=== PATIENT | female | born 1955 | race Caucasian/White ===

== ENCOUNTER 2019-10-07 04:22 | Emergency (ER) | payer BC ==
--- NOTE | 2019-10-07 07:42 | RAD ---
RADIOGRAPH CHEST ONE VIEW RADIOGRAPH ABDOMEN 2 VIEWS: DATE: 10/07/2019 HISTORY: 63-year-old female with constipation: Lack of bowel movement for more than one week FINDINGS: There are no airspace densities or pulmonary edema. The lateral costophrenic angles are sharp. There is no cardiomegaly. There is no evidence of pneumothorax or pneumoperitoneum. There is no evidence of dilated small bowel loops, differential air-fluid levels, or organomegaly. Mo derately large volume of colonic stool. IMPRESSION: 1) No acute cardiopulmonary findings. 2) no evidence of bowel obstruction. 3) constipation
== END 2019-10-07 05:24 | disposition home or self-care (01) ==
LOC: ERS 04:22
DX: K59.00 Constipation, unspecified (principal); E11.9 Type 2 diabetes mellitus without complications; F17.210 Nicotine dependence, cigarettes, uncomplicated
CPT/HCPCS: 74022

== ENCOUNTER 2019-11-09 20:38 | Inpatient (IN) | payer BC, OTHER ==
[2019-11-09] MEDS ORDERED: Ondansetron PF 4 MG/2 ML Vial ONE (21:03)
[2019-11-09 21:14] LABS: #Basophils 0.1 thou/uL (0.0-0.2); #Lymphocytes 1.2 thou/uL (1.20-3.40); #Monocytes 0.5 thou/uL (0.11-0.59); #Neutrophils 5.9 thou/uL (1.40-6.50); %Basophils 0.7 % (0.0-1.0); %Eosinophils 0.3 % (0.0-10.0); %Lymphocytes 15.8 % (21.0-51.0); %Neutrophils 77.2 % (42.0-75.0); Hemoglobin 14.9 g/dL (12.0-16.0); Mean Corpuscular HGB CONC 33.4 g/dL (32.0-36.0); Mean Corpuscular Hemoglobin 34.3 pg (27.0-31.0); Platelet Count 306 thou/uL (130-400); RBC Distribution Width 12.5 % (11.5-14.5); Red Blood Cell (RBC) Count 4.36 mill/uL (4.20-5.40); White Blood Cell (WBC) Count 7.7 thou/uL (4.8-10.8)
[2019-11-09 21:26] LABS: Base Excess-Venous 0.8 mmol/L (-2.0 to 3.0); Bicarbonate (HCO3v) 27.9 mmol/L (22.0-28.0); CO2 Tension (PvCO2) 53.7 mmHg (40.0-50.0); Calcium, Ionized 1.05 mmol/L (See Comments:); Chloride 96 mmol/L (98-107); Sodium 134 mmol/L (138-145); T. Carbon Dioxide 29.6 mmol/L (22.0-28.0); vO2 Saturation-calc 19.1 % (60.0-85.0)
[2019-11-09 21:41] LABS: ALT (SGPT) 33 U/L (8-55); AST (SGOT) 45 U/L (5-34); Albumin 4.6 g/dL (3.4-4.8); Alkaline Phosphatase 42 U/L (40-110); Anion Gap 12 mmol/L (10-20); BUN (Urea Nitrogen) 9 mg/dL (9.8-20.1); Bilirubin, Total 0.4 mg/dL (0.2-1.2); Calc. Creatinine Clearance 0 mL/min (70-130); Calcium 8.6 mg/dL (7.8-10.44); Carbon Dioxide 28 mmol/L (23-31); Chloride 96 mmol/L (98-107); Estimated GFR-MDRD 80; Globulin 2.8 g/dL (2.4-3.5); Glucose 143 mg/dL (80-115); Lipase 32 U/L (8-78); Potassium 4.5 mmol/L (3.5-5.1); Protein, Total 7.4 g/dL (6.0-8.3); Sodium 131 mmol/L (136-145)
[2019-11-09 22:18] LABS: Bacteria/HPF None Seen HPF (None Seen); Bilirubin Negative (Negative); Blood, Urine Trace (Negative); Clarity Clear (Clear); Glucose, Urine (Dipstick) 50 mg/dL (Negative); Ketone, Urine Negative (Negative); Leukocyte Negative Leu/uL (Negative); Nitrite Negative (Negative); Protein, Urine (Dipstick) Negative (Neg-Trace); RBC/HPF 0-3 HPF (0-3); Specific Gravity, Urine 1.005 (1.002-1.036); Squamous Epithelial 0-3 HPF (0-3); Urobilinogen Normal mg/dL (Less than 2); WBC/HPF 0-3 HPF (0-3)
[2019-11-09] MEDS ORDERED: Dexamethasone 10 MG/ML VIAL ONE (23:02)
--- NOTE | 2019-11-09 23:12 | RAD ---
EXAM: CHEST ONE VIEW HISTORY: Patient found unresponsive on bedroom floor. Altered mental status. COMPARISON: 11/12/2013. FINDINGS: The cardiac silhouette and pulmonary vasculature is within normal limits. The lungs are clear. Vascul ar calcifications are seen in the thoracic aorta. No other interval change IMPRESSION: No acute cardiopulmonary process.
[2019-11-09] MEDS ORDERED: Levothyroxine 100 MCG SDV IVP SCH (23:30)
[2019-11-10 00:47] LABS: Lactic Acid 1.2 mmol/L (0.5-2.2)
[2019-11-10] MEDS ORDERED: Ondansetron PF 4 MG/2 ML Vial IVP PRN (02:44)
[2019-11-10] MEDS ORDERED: Dextrose 50% Abboject 50 ML SYRINGE SLOW IVP PRN (02:44)
[2019-11-10] MEDS ORDERED: Ondansetron ODT 4 MG TAB PO PRN (02:44)
[2019-11-10] MEDS ORDERED: Dextrose 5% in Water 1,000 ML IV PRN (02:44)
[2019-11-10] MEDS ORDERED: Acetaminophen 500 MG TAB PO PRN (02:44)
[2019-11-10] MEDS ORDERED: Sodium Chloride 0.9% 1,000 ML IV SCH (02:45)
[2019-11-10 03:00] VITALS: BMI 21.8
--- NOTE | 2019-11-10 03:44 | HP ---
PRIMARY CARE PROVIDER: Luis Sheikh at [facility]. CHIEF COMPLAINT: Hypoglycemia. HISTORY OF PRESENT ILLNESS: This is a 63-year-old female, who presents to [facility] Emergency Department in transport by EMS personnel after the patient was found down at her home in her closet. The patient states that she became increasingly weak and was unable to get to the kitchen to check her blood glucose, which she says has been low in the past. The patient states she was too weak to crawl to the kitchen, at which point, her daughter apparently found her in her home after having to break the door down to get to her. The patient was initially discovered hypothermic as well as hypoglycemic with glucose in the 10 range. The patient did receive glucose administration and underwent a general evaluation in the emergency room. The patient was noted with TSH of 96 with a free T4 level of 0.63. The patient received IV levothyroxine in addition to IV fluids, Zofran, and dexamethasone. The patient states she feels improved clinically with less fatigue. The patient states she is followed by an rubber stamp die inspector for her diabetes and hypothyroidism and denies any specific change to her chronic regimen. The patient is unclear on taking the thyroid medication on a regular basis and states she may be out of the medicine. PAST MEDICAL HISTORY: 1. Hypothyroidism, poorly controlled. 2. Diabetes mellitus type 2. 3. Dyslipidemia. PAST SURGICAL HISTORY: Reviewed and negative. CURRENT MEDICATIONS: 1. Levothyroxine 175 mcg p.o. daily. 2. Metformin 1000 mg p.o. b.i.d. 3. Simvastatin 20 mg p.o. at bedtime. The rest of the medication list will need to be confirmed with family members. ALLERGIES: NO KNOWN DRUG ALLERGIES. FAMILY HISTORY: Positive for hypertension. SOCIAL HISTORY: Resides in [place], [place]. Smokes up to a pack of cigarettes daily x40 years. No alcohol or illicit drug use. Works as a assistant elementary teacher. REVIEW OF SYSTEMS: CONSTITUTIONAL: Negative for weight loss or gain, ability to conduct usual activities. SKIN: Negative for rash, itching. EYES: Negative for double vision, pain. ENT/MOUTH: Negative for nose bleeding, neck stiffness, pain, tenderness. CARDIOVASCULAR: Negative for palpitations, dyspnea on exertion, orthopnea. RESPIRATORY: Negative for shortness of breath, wheezing, cough, hemoptysis, fever or night sweats. GASTROINTESTINAL: Negative for poor appetite, abdominal pain, heartburn, nausea, vomiting, constipation, or diarrhea. GENITOURINARY: Negative for urgency, frequency, dysuria, nocturia. MUSCULOSKELETAL: Negative for pain, swelling. NEUROLOGIC/PSYCHIATRIC: Negative for anxiety, depression. ALLERGY/IMMUNOLOGIC: Negative for skin rash, bleeding tendency. Otherwise negative except as stated per HPI. PHYSICAL EXAMINATION: VITAL SIGNS: On admission, blood pressure 115/65, pulse 85, respiratory rate 16, temperature 98 degrees Fahrenheit, O2 saturation 98% on room air. GENERAL APPEARANCE: This is a 63-year-old female, alert and oriented x3, pleasant, smiling, in no acute distress. HEENT: Pupils are equal, round, reactive to light and accommodation. Extraocular muscles are intact. No scleral icterus. No conjunctival injection. Nares patent. OP is clear. Oral mucosa dry. NECK: Supple. No cervical adenopathy. No thyromegaly. No carotid bruits. No JVD appreciated. Cervical spine with full active and passive range of motion. No meningeal signs noted. CHEST: Lungs are clear to auscultation bilaterally. CARDIOVASCULAR EXAM: S1, S2 without noted murmur, rub, or gallop. ABDOMEN: Rounded, soft, nontender, and nondistended. Bowel sounds are positive in all 4 quadrants. There is no hepatosplenomegaly. No abdominal bruits. No rebound or guarding appreciated. EXTREMITIES: Warm and dry with fair turgor. No clubbing, cyanosis, or asymmetric edema appreciated. Pulses palpable distally at the dorsalis pedis, posterior tibial, and popliteal arteries bilaterally. Capillary refill less than 2 seconds. NEUROLOGIC: Cranial nerves 2 through 12 are grossly intact. No focal or lateralizing signs appreciated. PERTINENT LABORATORY AND X-RAY FINDINGS: Sodium 134, potassium 4.0, chloride 96, CO2 of 28, BUN 9, creatinine 0.73, estimated GFR 80, glucose 143. Lactic acid level ranged between 1.2 to 2.5. AST 45, ALT of 33, alkaline phosphatase 42. Troponin I negative x1. Lipase 32. TSH is 96.3, free T4 level 0.63. CBC showed a white blood cell count of 7.7, hemoglobin 15, hematocrit 45, MCV 102, platelet count 306 with 77% neutrophils. Venous blood gas dated 11/09/2019, showed pH of 7.32, pCO2 of 54, PO2 of 16. Urinalysis showed trace blood. SARS-Cov-2 rapid PCR not detected, 11/09/2019. Portable chest x-ray dated 11/09/2019 showed no acute cardiopulmonary process. EKG dated 11/09/2019 by my interpretation shows sinus mechanism with heart rates in the 80s. Normal R-wave progression noted in the precordial leads. Normal axis. No acute ST-T wave changes appreciated. ASSESSMENT AND PLAN: 1. Hypoglycemia. We will continue serial glucose monitoring. Hold home oral hypoglycemics. Check A1c level in the a.m. Continue intravenous fluids. Serial Accu-Cheks before meals and at bedtime. 2. Hypothyroidism. Poorly controlled on current regimen. Restart levothyroxine 175 mcg p.o. daily. 3. Hyponatremia. Suspect secondary to poor oral intake. Serial sodium monitoring. Continue intravenous normal saline at 75 mL/h. 4. Diabetes mellitus type 2. Insulin requiring. Continue insulin sliding scale for reflexive coverage. Serial Accu-Cheks. ADA diet when tolerating p.o. intake. 5. Question of syncope. The patient unclear if she had a syncopal event. We will continue serial monitoring. Fall risk precautions. Likely due to hypoglycemic event. 6. Tobacco abuse. Offer smoking cessation resources prior to discharge. 7. Prophylaxis. SCDs while in bed. Pepcid 20 mg p.o. b.i.d. 8. Code status is full. Surrogate medical decision maker is the patient's daughter. Job ID: [id number]
[2019-11-10] MEDS ORDERED: Levothyroxine 175 MCG TAB PO SCH (06:00)
[2019-11-10 06:25] LABS: #Lymphocytes 0.6 thou/uL (1.20-3.40); #Monocytes 0.1 thou/uL (0.11-0.59); #Neutrophils 5.5 thou/uL (1.40-6.50); %Basophils 0.2 % (0.0-1.0); %Eosinophils 0.4 % (0.0-10.0); %Lymphocytes 9.2 % (21.0-51.0); %Monocytes 2.2 % (0.0-10.0); Hemoglobin 13.1 g/dL (12.0-16.0); Mean Corpuscular HGB CONC 32.2 g/dL (32.0-36.0); Mean Corpuscular Hemoglobin 33.2 pg (27.0-31.0); Mean Platelet Volume 7.5 fL (7.4-10.4); Platelet Count 273 thou/uL (130-400); RBC Distribution Width 12.7 % (11.5-14.5); Red Blood Cell (RBC) Count 3.95 mill/uL (4.20-5.40); White Blood Cell (WBC) Count 6.2 thou/uL (4.8-10.8)
[2019-11-10] MEDS: HumaLOG 300 UNITS/3 ML VIAL SC PRN ×2 (06:29→12:18)
[2019-11-10 06:33] LABS: Hemoglobin A1c 8.7 % (4.0-6.0)
[2019-11-10 06:46] LABS: Anion Gap 13 mmol/L (10-20); BUN (Urea Nitrogen) 13 mg/dL (9.8-20.1); Calc. Creatinine Clearance 63 mL/min (70-130); Calcium 7.9 mg/dL (7.8-10.44); Carbon Dioxide 21 mmol/L (23-31); Chloride 99 mmol/L (98-107); Estimated GFR-MDRD 63; Glucose 497 mg/dL (80-115); Magnesium 1.6 mg/dL (1.6-2.6); Potassium 4.7 mmol/L (3.5-5.1); Sodium 128 mmol/L (136-145)
[2019-11-10] MEDS ORDERED: HumuLIN 70/30 (300 UNITS/3 ML VIAL) SC SCH (09:00)
[2019-11-10] MEDS ORDERED: Famotidine 20 MG TAB PO SCH (09:00)
[2019-11-10] MEDS ORDERED: Levothyroxine 100 MCG SDV SLOW IVP SCH (09:00)
[2019-11-10] MEDS ORDERED: Dexamethasone 4 mg/ml Vial SLOW IVP SCH (09:00)
[2019-11-10] MEDS ORDERED: Aspirin Chewable 81 MG TAB PO SCH (09:00)
[2019-11-10 13:15] VITALS: BP 139/83; TEMP 98.3
--- NOTE | 2019-11-11 01:08 | DIS ---
DATE OF ADMISSION: 11/10/2019 DATE OF DISCHARGE: 11/10/2019 HOSPITAL COURSE: Ms. Swain is a 63-year-old female with a medical history of hypothyroidism, type 2 diabetes, and medication nonadherence, who was found down. EMS was called and found her to be hypothermic and hypoglycemic at the range of 10 to 20. She was admitted and during her admission, blood glucose levels were normal and elevated after steroid administration. TSH was found to be grossly elevated at 96. On encounter, she demanded to go home. She received extensive education regarding diabetes management, the dangers of hypoglycemia and exhibiting decisional capacity. She was also educated regarding in steps she can take in order to treat her sensation of fullness when eating in the context of possible gastroparesis. Prior to leaving, she was requested to see her primary care physician and moss picker as soon as possible. Her brother and daughter were contacted and received extensive instructions regarding the modification in her medications and the possible diagnosis of dementia considering she forgot the nurse went to her room five times during her short stay in the hospital. Both the brother and the daughter were requested to involve her primary care physician for the diagnosis of dementia and Social Work in order to arrange for long-term care. She had a working diagnosis of symptomatic hypoglycemia most likely due to diabetic medication abuse or insulin overdosage in the context of reduced oral intake as well as gross hypothyroidism due to medication nonadherence. Vital signs at the time of discharge were blood pressure 139/83, pulse 92, respiratory rate 18, oxygen saturation 97% on room air, and temperature 98.3. Physical exam was not carried out due to the patient's demand to leave promptly. MEDICATIONS LIST: Discontinued medications, her DPP-4 inhibitor was discontinued in order to avoid episodes of hypoglycemia. Continued medications; 1. Aspirin. 2. Farxiga. 3. Insulin NPH. 4. Metformin. 5. Simvastatin. Modified medications, levothyroxine was decreased from 175 mcg to 75 mcg due to suspicion of nonadherence. The new dosage was based on the patient's weight. The daughter was extensively educated regarding the administration of levothyroxine. The reduction dosage of levothyroxine and appropriate administration early in the morning prior to taking any other medications or meals. Job ID: [id number]
== END 2019-11-10 12:26 | disposition left against medical advice (07) | DRG 918 ==
LOC: ERS 20:38 → T4-A 11-10 00:03
PROVIDERS: ADMIT Family Medicine; ATTEND Family Medicine
DX: T38.3X1A Poisoning by insulin and oral hypoglycemic [antidiabetic] drugs, accidental (unintentional), initial encounter (principal); E87.1 Hypo-osmolality and hyponatremia; E11.649 Type 2 diabetes mellitus with hypoglycemia without coma; E03.9 Hypothyroidism, unspecified; R68.0 Hypothermia, not associated with low environmental temperature; F17.210 Nicotine dependence, cigarettes, uncomplicated; Z53.29 Procedure and treatment not carried out because of patient's decision for other reasons; Z88.0 Allergy status to penicillin; Z79.4 Long term (current) use of insulin; Z88.1 Allergy status to other antibiotic agents; Z79.890 Hormone replacement therapy; Z91.14 Patient's other noncompliance with medication regimen
CPT/HCPCS: 36415; 36416; 71045; 80048; 80053; 81003; 81015; 82330; 82533; 82607; 82746; 82803; 83036; 83605; 83690; 83735; 84439; 84443; 84484; 85025; 87040; 87086; 93005; 94760; J1100; J1815; J2405; U0002

== ENCOUNTER 2020-02-21 13:41 | Emergency (ER) | payer MEDICARE, MEDICAID ==
[2020-02-21 14:25] LABS: #Basophils 0.1 thou/uL (0.0-0.2); #Eosinphils 0.1 thou/uL (0.0-0.7); #Lymphocytes 2.7 thou/uL (1.20-3.40); #Monocytes 0.6 thou/uL (0.11-0.59); %Eosinophils 1.3 % (0.0-10.0); %Lymphocytes 36.6 % (21.0-51.0); %Monocytes 7.4 % (0.0-10.0); %Neutrophils 53.7 % (42.0-75.0); Hemoglobin 14.4 g/dL (12.0-16.0); Mean Corpuscular HGB CONC 34.5 g/dL (32.0-36.0); Mean Corpuscular Hemoglobin 33.9 pg (27.0-31.0); Mean Corpuscular Volume 98.3 fL (78.0-98.0); Mean Platelet Volume 7.4 fL (7.4-10.4); Platelet Count 300 thou/uL (130-400); RBC Distribution Width 11.9 % (11.5-14.5); Red Blood Cell (RBC) Count 4.25 mill/uL (4.20-5.40); White Blood Cell (WBC) Count 7.4 thou/uL (4.8-10.8)
[2020-02-21 14:44] LABS: Acetaminophen Less than 6.0 mcg/mL (10.0-30.0); Alcohol Less than 10 mg/dL (Less than 10); Salicylate Less than 8.0 mg/dL (15.0-30.0)
[2020-02-21 14:46] LABS: ALT (SGPT) 11 U/L (8-55); AST (SGOT) 17 U/L (5-34); Albumin 3.9 g/dL (3.4-4.8); Alkaline Phosphatase 42 U/L (40-110); Anion Gap 14 mmol/L (10-20); BUN (Urea Nitrogen) 9 mg/dL (9.8-20.1); Bilirubin, Total 0.3 mg/dL (0.2-1.2); Calc. Creatinine Clearance 0 mL/min (70-130); Calcium 9.1 mg/dL (7.8-10.44); Carbon Dioxide 26 mmol/L (23-31); Chloride 102 mmol/L (98-107); Estimated GFR-MDRD 76; Globulin 2.7 g/dL (2.4-3.5); Glucose 198 mg/dL (80-115); Potassium 3.6 mmol/L (3.5-5.1); Protein, Total 6.6 g/dL (6.0-8.3); Sodium 138 mmol/L (136-145)
[2020-02-21 16:36] LABS: Bilirubin Negative (Negative); Blood, Urine Negative (Negative); Clarity Clear (Clear); Glucose, Urine (Dipstick) Normal (Negative); Ketone, Urine Negative (Negative); Leukocyte Negative Leu/uL (Negative); Nitrite Negative (Negative); Protein, Urine (Dipstick) Negative (Neg-Trace); Specific Gravity, Urine 1.006 (1.002-1.036); Urobilinogen Normal mg/dL (Less than 2)
[2020-02-21 16:47] LABS: Amphetamine Not Detected (NotDetected); Barbiturates Screen Not Detected (NotDetected); Benzodiazepine Screen Not Detected (NotDetected); Cocaine Metabolite Screen Not Detected (NotDetected); Medtox Control Line Valid? VALID (VALID); Medtox Reader # READER 4; Methadone Not Detected (NotDetected); Methamphetamine Not Detected (NotDetected); Opiate Screen Not Detected (NotDetected); Oxycodone Screen Not Detected (NotDetected); Phencyclidine (PCP) Not Detected (NotDetected); THC/Cannabinoid Screen Not Detected (NotDetected); Tricyclic Screen Not Detected (NotDetected)
== END 2020-02-21 18:18 | disposition home or self-care (01) ==
LOC: ERS 13:41
DX: R41.82 Altered mental status, unspecified (principal); E11.9 Type 2 diabetes mellitus without complications; F03.90 Unspecified dementia, unspecified severity, without behavioral disturbance, psychotic disturbance, mood disturbance, and anxiety; F17.210 Nicotine dependence, cigarettes, uncomplicated; Z79.4 Long term (current) use of insulin; Z79.899 Other long term (current) drug therapy
CPT/HCPCS: 36415; 80053; 80306; 80307; 81003; 85025; 99285

== ENCOUNTER 2020-11-26 19:39 | Emergency (ER) | payer MEDICARE, MEDICAID ==
[2020-11-26 20:31] LABS: #Basophils 0.1 thou/uL (0.0-0.2); #Eosinphils 0.1 thou/uL (0.0-0.7); #Lymphocytes 1.4 thou/uL (1.20-3.40); #Monocytes 0.5 thou/uL (0.11-0.59); #Neutrophils 6.2 thou/uL (1.40-6.50); %Basophils 0.9 % (0.0-1.0); %Eosinophils 0.7 % (0.0-10.0); %Lymphocytes 16.5 % (21.0-51.0); %Monocytes 6.5 % (0.0-10.0); %Neutrophils 75.4 % (42.0-75.0); Hemoglobin 13.4 g/dL (12.0-16.0); Mean Corpuscular HGB CONC 34.1 g/dL (32.0-36.0); Mean Corpuscular Hemoglobin 34.4 pg (27.0-31.0); Mean Platelet Volume 8.4 fL (7.4-10.4); Platelet Count 269 thou/uL (130-400); RBC Distribution Width 11.5 % (11.5-14.5); Red Blood Cell (RBC) Count 3.89 mill/uL (4.20-5.40); White Blood Cell (WBC) Count 8.2 thou/uL (4.8-10.8)
[2020-11-26] MEDS ORDERED: Insulin Regular 300 UNITS/3 ML VIAL ONE (22:14)
[2020-11-26 22:25] LABS: Albumin 3.5 g/dL (3.4-4.8); Alkaline Phosphatase 98 U/L (40-110); Anion Gap 12 mmol/L (10-20); Bilirubin, Total 0.5 mg/dL (0.2-1.2); Calc. Creatinine Clearance 0 mL/min (70-130); Calcium 8.5 mg/dL (7.8-10.44); Carbon Dioxide 22 mmol/L (23-31); Chloride 97 mmol/L (98-107); Globulin 2.4 g/dL (2.4-3.5); Glucose 721 mg/dL (80-115); Potassium 4.3 mmol/L (3.5-5.1); Protein, Total 5.9 g/dL (5.8-8.1); Sodium 127 mmol/L (136-145)
[2020-11-26 22:52] LABS: ALT (SGPT) 13 U/L (8-55); AST (SGOT) 15 U/L (5-34); BUN (Urea Nitrogen) 22 mg/dL (9.8-20.1); Lipase 44 U/L (8-78); Magnesium 1.5 mg/dL (1.6-2.6)
[2020-11-26 23:17] LABS: Anion Gap 11 mmol/L (10-20); BUN (Urea Nitrogen) 18 mg/dL (9.8-20.1); Calc. Creatinine Clearance 0 mL/min (70-130); Calcium 8.2 mg/dL (7.8-10.44); Carbon Dioxide 23 mmol/L (23-31); Chloride 104 mmol/L (98-107); Glucose 445 mg/dL (80-115); Potassium 4.5 mmol/L (3.5-5.1); Sodium 133 mmol/L (136-145)
[2020-11-26 23:29] LABS: Bilirubin Negative (Negative); Blood, Urine Negative (Negative); Clarity Clear (Clear); Glucose, Urine (Dipstick) Greater than 1000 mg/dL (Negative); Ketone, Urine Trace mg/dL (Negative); Leukocyte 25 Leu/uL (Negative); Nitrite Negative (Negative); Protein, Urine (Dipstick) Negative (Neg-Trace); RBC/HPF 0-3 HPF (0-3); Specific Gravity, Urine 1.033 (1.002-1.036); Urobilinogen Normal mg/dL (Less than 2); WBC/HPF 0-3 HPF (0-3)
[2020-11-26 23:30] LABS: Bacteria/HPF 1+ HPF (None Seen)
== END 2020-11-27 00:19 | disposition home or self-care (01) ==
LOC: ERS 19:39
DX: E11.65 Type 2 diabetes mellitus with hyperglycemia (principal); F17.210 Nicotine dependence, cigarettes, uncomplicated; Z79.4 Long term (current) use of insulin; Z79.899 Other long term (current) drug therapy
CPT/HCPCS: 36415; 36416; 80053; 81003; 81015; 83690; 83735; 85025; 93005; J1815

== ENCOUNTER 2022-05-27 14:28 | Emergency (ER) | payer MEDICARE, MEDICAID ==
[2022-05-27 16:17] LABS: #Eosinphils 0.1 thou/uL (0.0-0.7); #Lymphocytes 2.5 thou/uL (1.20-3.40); #Monocytes 0.4 thou/uL (0.11-0.59); %Basophils 0.4 % (0.0-1.0); %Eosinophils 2.1 % (0.0-10.0); %Lymphocytes 34.9 % (21.0-51.0); %Monocytes 6.2 % (0.0-10.0); %Neutrophils 56.3 % (42.0-75.0); Hemoglobin 13.7 g/dL (12.0-16.0); Mean Corpuscular HGB CONC 33.5 g/dL (32.0-36.0); Mean Corpuscular Hemoglobin 32.6 pg (27.0-31.0); Mean Corpuscular Volume 97.5 fl (78.0-98.0); Mean Platelet Volume 8.4 fL (7.4-10.4); Platelet Count 265 10x3/uL (130-400); RBC Distribution Width 12.8 % (11.5-14.5)
[2022-05-27 16:27] LABS: Bacteria/HPF None Seen HPF (None Seen); Bilirubin Negative (Negative); Blood, Urine Negative (Negative); Clarity Clear (Clear); Glucose, Urine (Dipstick) Greater than 1000 mg/dL (Negative); Ketone, Urine Trace mg/dL (Negative); Leukocyte 75 Leu/uL (Negative); Nitrite Negative (Negative); Protein, Urine (Dipstick) Negative (Neg-Trace); RBC/HPF 0-3 HPF (0-3); Specific Gravity, Urine 1.015 (1.002-1.036); Squamous Epithelial 0-3 HPF (0-3); Urobilinogen Normal mg/dL (Less than 2); WBC/HPF 0-3 HPF (0-3)
[2022-05-27 16:39] LABS: ALT (SGPT) 19 U/L (8-55); AST (SGOT) 19 U/L (5-34); Albumin 3.5 g/dL (3.4-4.8); Alkaline Phosphatase 61 U/L (40-110); Anion Gap 12 mmol/L (10-20); BUN (Urea Nitrogen) 15 mg/dL (9.8-20.1); Bilirubin, Total 0.4 mg/dL (0.2-1.2); Calc. Creatinine Clearance 0 mL/min (70-130); Calcium 9.2 mg/dL (7.8-10.44); Carbon Dioxide 25 mmol/L (23-31); Chloride 104 mmol/L (98-107); Estimated GFR 84; Globulin 3.3 g/dL (2.4-3.5); Glucose 263 mg/dL (80-115); Potassium 3.7 mmol/L (3.5-5.1); Protein, Total 6.8 g/dL (5.8-8.1); Sodium 137 mmol/L (136-145)
== END 2022-05-27 18:35 | disposition home or self-care (01) ==
LOC: ERS 14:28
DX: R41.82 Altered mental status, unspecified (principal); E11.9 Type 2 diabetes mellitus without complications; F17.210 Nicotine dependence, cigarettes, uncomplicated
CPT/HCPCS: 36415; 36416; 70450; 80053; 81003; 81015; 85025; 93005

== ENCOUNTER 2022-06-17 14:23 | Emergency (ER) | payer MEDICARE, MEDICAID | END 2022-06-17 16:18 | disposition home or self-care (01) | LOC: ERS 14:23 | DX: S90.415A Abrasion, left lesser toe(s), initial encounter (principal); E11.9 Type 2 diabetes mellitus without complications; W21.31XA Struck by shoe cleats, initial encounter; Z87.891 Personal history of nicotine dependence | CPT/HCPCS: 99283 ==